=== PATIENT | male | born 1935 | race Caucasian/White ===

== ENCOUNTER 2019-04-28 08:11 | Day surgery (SDC) | payer OTHER ==
[2019-04-24 12:24] VITALS: BMI 26.6
[2019-04-28] MEDS ORDERED: PROPOFOL 20 ML ONE ×3 (09:07→10:05)
[2019-04-28] MEDS ORDERED: LIDOCAINE HCL/PF 2% SDV 5ML VIAL ONE (09:07)
[2019-04-28 11:10] VITALS: PULSE 66; TEMP 97.5
[2019-04-28 11:14] VITALS: BP 136/49
--- NOTE | 2019-04-30 16:10 | PATH ---
Surgical Pathology Report Patient Name: JAMAAL [facility]HOU [facility]. Rec. #: [id number] /Age/Gender: 1935 (Age: 83) / M Account: [id number] Location: [facility] Taken: 04/28/2019 Received: 04/28/2019 Reported: 04/30/2019 Physicians: Trenton Nicole M.D. Specimen(s) Received A: GASTRIC ANTRUM B: BX POLYP CECUM C: POLYPECTOMY HEPATIC FLEXURE D: POLYPECTOMY DISTAL LEFT COLON Clinical History Duodenitis, gastritis, duodenal ectasia, diverticulosis, colon polyps Final Diagnosis A. 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 IMMUNOSTAIN IS NEGATIVE FOR H. PYLORI ORGANISMS. B. CECUM, POLYP, BIOPSY: TUBULAR ADENOMA. C. HEPATIC FLEXURE, POLYP, HOT SNARE POLYPECTOMY: TUBULAR ADENOMA. D. DISTAL LEFT COLON, POLYP, HOT SNARE POLYPECTOMY: TUBULAR ADENOMA. Electronically Signed Barbara Bernal M.D. Gross Description A. Received in formalin, labeled "gastric antrum" is a hsu, irregular portion of soft tissue measuring 0.2 cm. in greatest dimension. The specimen is submitted in toto in one cassette. B. Received in formalin, labeled "bx polyp cecum" is a hsu, polypoid portion of soft tissue measuring 0.4 cm. in greatest dimension. The specimen is submitted in toto in one cassette. C. Received in formalin, labeled "hot snare polypectomy hepatic flexure" is a hsu, polypoid portion of soft tissue measuring 0.3 cm. in greatest dimension. The specimen is submitted in toto in one cassette. D. Received in formalin, labeled "hot snare polypectomy distal left colon" is a hsu, polypoid portion of soft tissue measuring 0.5 cm. in greatest dimension. The specimen is submitted in toto in one cassette.
== END 2019-04-28 11:10 | disposition home or self-care (01) ==
LOC: FASU 08:11
PROVIDERS: ATTEND Internal Medicine Gastroenterology
PROC: 0DBL8ZX Excision of Transverse Colon, Via Natural or Artificial Opening Endoscopic, Diagnostic (ICD-10-PCS; 2019-04-28)
PROC: 0DBM8ZX Excision of Descending Colon, Via Natural or Artificial Opening Endoscopic, Diagnostic (ICD-10-PCS; 2019-04-28)
PROC: 0DB68ZX Excision of Stomach, Via Natural or Artificial Opening Endoscopic, Diagnostic (ICD-10-PCS; 2019-04-28)
PROC: 0DBH8ZX Excision of Cecum, Via Natural or Artificial Opening Endoscopic, Diagnostic (ICD-10-PCS; principal; 2019-04-28 09:36)
DX: D64.9 Anemia, unspecified (principal); D12.0 Benign neoplasm of cecum; D12.3 Benign neoplasm of transverse colon; D12.4 Benign neoplasm of descending colon; K57.30 Diverticulosis of large intestine without perforation or abscess without bleeding; K29.50 Unspecified chronic gastritis without bleeding; K31.9 Disease of stomach and duodenum, unspecified
CPT/HCPCS: 88305-TC; 88342-TC